=== PATIENT | female | born 1980 | race Caucasian/White ===

== ENCOUNTER → 2017-07-28 | Outpatient (CLI) | payer BC, MEDICAID ==
[2017-07-29 04:15] LABS: RPR Non Reactive (Non Reactive)
[2017-07-30 10:40] LABS: Hepatitis B Surface Antigen Negative (Negative)
[2017-07-30 10:52] LABS: Hepatitis C Antibody Negative (Negative)
[2017-07-30 10:53] LABS: Hepatitis B Core IgM Negative
[2017-07-30 10:54] LABS: Hepatitis A Ab IgM Negative
== END | disposition home or self-care (01) ==
LOC: LAB 10:22
PROVIDERS: ATTEND Obstetrics & Gynecology
DX: Z72.51 High risk heterosexual behavior (principal)
CPT/HCPCS: 36415; 80074; 86592; 86703

== ENCOUNTER → 2019-03-23 | Outpatient (CLI) | payer BC, MEDICAID ==
[2019-03-24 05:07] LABS: RPR Non Reactive (Non Reactive)
== END | disposition home or self-care (01) ==
LOC: LAB 14:25
PROVIDERS: ATTEND Obstetrics & Gynecology
DX: Z11.3 Encounter for screening for infections with a predominantly sexual mode of transmission (principal); Z20.2 Contact with and (suspected) exposure to infections with a predominantly sexual mode of transmission
CPT/HCPCS: 86592; 86703

== ENCOUNTER → 2020-07-24 | Outpatient (CLI) | payer BC ==
[2020-07-25 08:06] LABS: RPR Non Reactive (Non Reactive)
== END | disposition home or self-care (01) ==
LOC: LAB 10:16
PROVIDERS: ATTEND Obstetrics & Gynecology
DX: Z20.2 Contact with and (suspected) exposure to infections with a predominantly sexual mode of transmission (principal)
CPT/HCPCS: 36415; 86592; 86703; 87340